=== PATIENT | male | born 2000 | race Caucasian/White ===

== ENCOUNTER 2020-09-04 08:56 | Emergency (ER) | payer MEDICAID ==
[~2020-09-04] VITALS: Ht 177.8 cm; Wt 72.6 kg
[2020-09-04 09:03] VITALS: BP_SYST 130
[2020-09-04 09:40] VITALS: BP_SYST 130
== END 2020-09-04 09:40 ==
LOC: SED 08:56
DX: J45.909 Unspecified asthma, uncomplicated (principal); F41.9 Anxiety disorder, unspecified
CPT/HCPCS: 99283